=== PATIENT | male | born 1995 | race Caucasian/White ===

== ENCOUNTER 2018-07-30 09:02 | Inpatient (IN) | payer BC ==
[~2018-07-30] VITALS: Ht 188 cm; Wt 77.1 kg
--- NOTE | 2018-07-30 09:05 | NUR ---
PT AMBULATES TO BED 7
[2018-07-30 09:10] VITALS: BP 126/56
--- NOTE | 2018-07-30 09:18 | NUR ---
PT C/O NON RADIATING MID ABDOMINAL PAIN AND VOMITING SINCE LAST NIGHT. PER PT HE HAD BEEN DRINKING "HEAVILY" LAST NIGHT TIL MIDNIGHT. PT REPORTS SCHING, CRAMPING IN ABDOMEN. PAIN 12/20. VSS; PATIENT POSITIONED FOR COMFORT; HOB ELEVATED; BEDRAILS UP X1; BED DOWN. ER MD MADE AWARE OF PT STATUS.
--- NOTE | 2018-07-30 09:18 | NUR ---
Note kathe in EDM - 07/30/18 at 0918 by BRITTANY pt C/O NON RADIATING MID ABDOMINAL PAIN AND VOMITING SINCE LAST NIGHT. PER PT HE HAD BEEN DRINKING "HEAVILY" LAST NIGHT TIL MIDNIGHT.
--- NOTE | 2018-07-30 09:19 | NUR ---
Patient being evaluated by physician at bedside.
[2018-07-30] MEDS ORDERED: NACL 0.9% 1,000 ML IV ONE (09:23)
[2018-07-30] MEDS ORDERED: MORPHINE SULFATE 4 MG/ML SYR IVP ONE ×2 (09:25→10:25)
[2018-07-30] MEDS ORDERED: FAMOTIDINE 20 MG/2 ML VIAL IVP ONE (09:25)
[2018-07-30] MEDS ORDERED: ONDANSETRON 4 MG/2 ML VIAL IVP ONE (09:45)
[2018-07-30 09:48] LABS: APPEARANCE,URINE CLEAR (CLEAR); BILIRUBIN,URINE NEGATIVE (NEGATIVE); BLOOD, URINE NEGATIVE (NEGATIVE); COLOR,URINE YELLOW (YELLOW); LEUKOCYTE ESTERASE ,URINE NEGATIVE (NEGATIVE); NITRITE, URINE NEGATIVE (NEGATIVE); UGLUCOSE NEGATIVE (NEGATIVE)
[2018-07-30 09:55] LABS: BASOPHILS % (AUTO) 0.2 % (0.0-2.0); EOSINOPHILS % (AUTO) 0.2 % (0.0-4.0); HEMOGLOBIN 14.6 g/dL (12.0-18.0); LYMPHOCYTES # (AUTO) 1.2 K/uL (2.0-11.5); LYMPHOCYTES % (AUTO) 14.8 % (20.5-51.1); MEAN CORPUSCULAR HEMOGLOBIN 31 pg (27-31); MEAN CORPUSCULAR HGB CONC 34 g/dL (33-37); MEAN CORPUSCULAR VOLUME 90.4 fL (80-94); MONOCYTES # (AUTO) 0.5 K/uL (0.8-1.0); MONOCYTES % (AUTO) 5.8 % (1.7-9.3); NEUTROPHILS # (AUTO) 6.3 K/uL (1.8-7.7); PLATELET COUNT (AUTO) 205 K/uL (140-450); RED BLOOD CELL COUNT(AUTO) 4.76 MIL/uL (4.20-6.10); WHITE BLOOD COUNT (AUTO) 7.9 K/uL (4.8-10.8)
[2018-07-30 10:04] LABS: ALBUMIN 4.9 g/dL (3.4-5.0); ANION GAP 12.1 (8-16); CARBON DIOXIDE 26.5 mmol/L (21-32); CHOL/HDL RATIO 2.3 (1-4.5); CREATININE 0.9 mg/dL (0.7-1.3); POTASSIUM 4.6 mmol/L (3.5-5.1); TOTAL BILIRUBIN 1.1 mg/dL (0.0-1.0)
[2018-07-30] MEDS ORDERED: DEXT 5% /NACL 0.9% 1,000 ML IV SCH (10:39)
[2018-07-30] MEDS ORDERED: ACETAMINOPHEN 325 MG TAB PO PRN (10:40)
--- NOTE | 2018-07-30 11:00 | NUR ---
XRAY AT BEDSIDE
--- NOTE | 2018-07-30 11:15 | NUR ---
PT TAKEN TO TELE FLOOR BY POLO GOLDMAN AND EMT JOSHUA
[2018-07-30 11:20] VITALS: BP 128/66
--- NOTE | 2018-07-30 11:20 | NUR ---
PATIENT ARRIVED FROM ER VIA GURNEY. ABLE TO AMBULATE FROM ER BED TO [facility] BED WITH STABLE GAIT. NO DISTRESS NOTED. REPORTS VOMITING X 2 IN ER AND REPORT FEELING BETTER AFTER VOMITING. ZOFRAN AND MORPHINE ALREADY GIVEN AT ER. ABDOMEN SOFT, NON-DISTENDED. IV SITE INTACT, PATENT, WILL START IVF PER MD ORDERS. ORIENTED PATIENT TO ROOM AND CALL LIGHT. REVIEWED PLAN OF CARE WITH PATIENT. PATIENT VERBALIZED UNDERSTANDING. WILL CONTINUE TO MONITOR.
[2018-07-30 11:30] LABS: BARBITURATE, URINE NEG. ng/ml (NEG <=200); BENZODIAZEPINE, URINE NEG. ng/mL (NEG <=200); CANNABINOID, URINE POS. ng/mL (NEG <=50); COCAINE, URINE NEG. ng/mL (NEG <=300); OPIATE, URINE NEG. ng/mL (NEG <=2000); PHENCYCLIDINE SCREEN,URINE NEG. ng/mL (NEG <=25)
--- NOTE | 2018-07-30 11:30 | NUR ---
Patient will be admitted to care of DR. SHRESTHA. Admited to TELE. Will go to room 105B. Belongings list completed. Report to MARIELY CUELLAR.
[2018-07-30 11:46] LABS: PROTHROMBIN TIME 10.4 secs (10.8-13.4)
[2018-07-30 12:00] LABS: FREE T4 (FREE THYROXINE) 1.19 ng/dL (0.76-1.46); THYROID STIMULATING HORMONE 0.46 uIU/mL (0.34-3.74)
[2018-07-30] MEDS: NACL 0.9% 1,000 ML IV SCH ×2 (12:01→19:49)
--- NOTE | 2018-07-30 12:08 | NUR ---
ONLINE COMMUNICATIONS SPECIALIST AT BEDSIDE TO PERFORM US OF ABD. WILL CONTINUE TO MONITOR.
[2018-07-30] MEDS: MORPHINE SULFATE 4 MG/ML SYR IVP PRN ×3 (13:34→19:48)
--- NOTE | 2018-07-30 14:03 | NUR ---
PATIENT SITTING IN BED WITH COMPLAINTS OF ABD PAIN, MORPHINE GIVEN PER MD ORDERS. VOMIT X2 AROUNS 100 ML EACH, YELLOW IN COLOR. WILL CONTINUE TO MONITOR.
[2018-07-30] MEDS: ONDANSETRON 4 MG/2 ML VIAL IVP PRN ×2 (14:24→22:38)
[2018-07-30 16:00] VITALS: BP 145/87
--- NOTE | 2018-07-30 16:30 | NUR ---
PATIENT SITTING IN BED WATCHING TV. NO DISTRESS NOTED. CONDITION UNCHANGED. WILL CONTINUE TO MONITOR.
[2018-07-30] MEDS: DEXT 5% / NACL 0.9% 500 ML IV SCH ×2 (16:35→22:15)
[2018-07-30] MEDS: KETOROLAC 15 MG/ML VIAL IVP SCH (17:23)
--- NOTE | 2018-07-30 18:30 | NUR ---
PATIENT TALKING TO MOTHER AT BEDSIDE. NO DISTRESS NOTED. WILL CONTINUE TO MONITOR.
--- NOTE | 2018-07-30 19:30 | NUR ---
GAVE REPORT TO ELECTRICAL LOGGING ENGINEER NURSE FOR CONTINUITY OF CARE. PATIENT IN STABLE CONDITION.
--- NOTE | 2018-07-30 19:31 | NUR ---
PATIENT ARRIVED FROM AM SHIFT. A,O X 4 AMBULATORY. TELE PT. NO DISTRESS NOTED. R. IV SITE INTACT, PATENT, WITH IV ONGOING ON LEFT AC G 18 NS AT 120 AND LEFT FOREARM WITH D5 .9 NS AT 80 . PT PLACED IN LOWEST BED POSITION. CALL LIGHT WITHIN REACH. WILL CONTINUE TO MONITOR.
[2018-07-30 20:00] VITALS: BP 144/83
[2018-07-31] VITALS: BP 145/85
[2018-07-31] MEDS: KETOROLAC 15 MG/ML VIAL IVP SCH ×5 (00:43→23:42)
[2018-07-31 04:00] VITALS: BP 138/85
[2018-07-31] MEDS: NACL 0.9% 1,000 ML IV SCH (04:05)
[2018-07-31] MEDS: DEXT 5% / NACL 0.9% 500 ML IV SCH ×3 (04:30→18:11)
--- NOTE | 2018-07-31 04:30 | NUR ---
PT GIVEN MOPRHINE REQUESTED PAIN AT 01/20. WILL REASSESS.
[2018-07-31] MEDS: MORPHINE SULFATE 4 MG/ML SYR IVP PRN (04:34)
--- NOTE | 2018-07-31 05:00 | NUR ---
PT GIVEN MORPHINE HAD 8/10 PAIN RECENTLYTORADOL ROUTINE NON-ADMNISTERED DUE TO RELIEF OF PAIN, NO COMPLAINTS, NO SYMPTOMS OF PAIN
--- NOTE | 2018-07-31 06:00 | NUR ---
TORADOL NOT GIVEN LAST DOSE OF MORPHINE TOO CLOSE. DR. ROD.
[2018-07-31 06:24] LABS: BASOPHILS % (AUTO) 0.1 % (0.0-2.0); EOSINOPHILS % (AUTO) 0.1 % (0.0-4.0); HEMATOCRIT 39.3 % (36-52); HEMOGLOBIN 13.2 g/dL (12.0-18.0); LYMPHOCYTES # (AUTO) 0.9 K/uL (2.0-11.5); LYMPHOCYTES % (AUTO) 9.6 % (20.5-51.1); MEAN CORPUSCULAR HEMOGLOBIN 31 pg (27-31); MEAN CORPUSCULAR HGB CONC 34 g/dL (33-37); MEAN CORPUSCULAR VOLUME 91.9 fL (80-94); MONOCYTES # (AUTO) 0.9 K/uL (0.8-1.0); MONOCYTES % (AUTO) 9.2 % (1.7-9.3); NEUTROPHILS # (AUTO) 7.8 K/uL (1.8-7.7); PLATELET COUNT (AUTO) 169 K/uL (140-450); RED BLOOD CELL COUNT(AUTO) 4.28 MIL/uL (4.20-6.10); RED CELL DISTRIBUTION WIDTH 12.9 % (11.6-13.7); WHITE BLOOD COUNT (AUTO) 9.6 K/uL (4.8-10.8)
[2018-07-31 06:41] LABS: ANION GAP 9.6 (8-16); CARBON DIOXIDE 28.7 mmol/L (21-32); CREATININE 0.8 mg/dL (0.7-1.3); POTASSIUM 4.3 mmol/L (3.5-5.1)
[2018-07-31 06:48] LABS: MAGNESIUM 1.8 mg/dL (1.8-2.4); PHOSPHORUS 3.6 mg/dL (2.5-4.9)
[2018-07-31] MEDS ORDERED: MULTIVITAMIN-12 10 ML, THIAMINE 100 MG, FOLIC ACID 1 MG, MAGNESIUM SULFATE 50% 2,000 MG... IV ONE ×5 (07:10)
--- NOTE | 2018-07-31 07:16 | NUR ---
ENDORSED TO NEXT SHIFT IN STABLE VITALS AND CONDITION FOR CONTINUITY OF CARE.
--- NOTE | 2018-07-31 07:30 | NUR ---
RECEIVED PT IN BED, AWAKE, ALERT, ORIENTED X4. NO SOB NOTED, NO C/O PAIN AT THIS TIME. IV TO LAC AND LFA PATENT AND INTACT. CHEST, CLEAR. ABDOMEN SOFT, BOWEL SOUNDS PRESENT. NPO MAINTAINED. INSTRUCTED PT TO CALL FOR ASSISTANCE, CALL LIGHT WITHIN REACH, VERBALIZED UNDERSTANDING.
[2018-07-31 08:00] VITALS: BP 120/76
[2018-07-31] MEDS ORDERED: NACL 0.9% 1,000 ML IV SCH (08:25)
--- NOTE | 2018-07-31 08:25 | NUR ---
PATIENT HAS BEEN SCREENED AND CATEGORIZED MODERATE NUTRITION RISK. PATIENT WILL BE SEEN WITHIN 3-5 DAYS OF ADMISSION. 08/01/18RADHA [address]OLD [address]
[2018-07-31] MEDS ORDERED: oxyCODONE/APAP 5/325 MG 1 TAB TAB PO PRN (08:35)
[2018-07-31] MEDS ORDERED: MULTIVITAMIN-12 10 ML, THIAMINE 100 MG, MAGNESIUM SULFATE 50% 2,000 MG, FOLIC ACID 1 MG... IV ONE ×5 (08:40)
[2018-07-31] MEDS ORDERED: MULTIVITAMIN-12 10 ML, THIAMINE 100 MG, MAGNESIUM SULFATE 50% 2,000 MG, FOLIC ACID 1 MG... IV SCH ×5 (09:00)
[2018-07-31] MEDS: PANTOPRAZOLE 40 MG INJ VIAL IVP SCH (09:43)
--- NOTE | 2018-07-31 12:00 | NUR ---
PT TOLERATED CLEAR LIQUIDS FOR BREAKFAST AND LUNCH. NO N&V NOTED.
--- NOTE | 2018-07-31 15:45 | NUR ---
PT RESTING. NO SOB NOTED. NO COMPLAINTS MADE.
[2018-07-31 16:00] VITALS: BP 125/70
--- NOTE | 2018-07-31 19:00 | NUR ---
PT AWAKE, TALKING ON THE PHONE. NO COMPLAINTS MADE. WILL ENDORSE TO NEXT SHIFT NURSE.
--- NOTE | 2018-07-31 19:00 | NUR ---
PT TOLERATED FULL LIQUIDS. NO N&V NOTED.
--- NOTE | 2018-07-31 19:27 | NUR ---
RECEIVED FROM AM RN IN BED AWAKE AND ALERT. PT. A/O X 4. ROM X 4. CLEAR SPEECH. VERBALIZES NEEDS IN [place]. CARE PLANS FOR THE NIGHT DISCUSSED WITH HIM. CALL LIGHT WITH IN REACH. NO SOB. DENIES PAIN AT THIS TIME. PT. WATCHING SOMETHING IN HIS CELL PHONE. ENCOURAGED TO USE CALL LIGHT FOR ANY PAIN HE HAS OR IF H E NEEDS ANY HELP.
[2018-07-31 23:42] VITALS: BP 130/80
[2018-08-01] MEDS: DEXT 5% / NACL 0.9% 500 ML IV SCH ×2 (00:12→05:49)
--- NOTE | 2018-08-01 00:13 | NUR ---
TORADOL IVP SCHEDULED ADMINISTERED. NO COMPLAINTS DONE. WAKES UP EASILY WHEN CALLED BY NAME. NO SOB. IVF SITES INTACT AND NO INFILTRATION. CALL LIGHT WITH IN REACH.
[2018-08-01 05:49] VITALS: BP_SYST 117; BP_SYST 134; BP_DIAS 60; BP_DIAS 84
[2018-08-01] MEDS: KETOROLAC 15 MG/ML VIAL IVP SCH (05:49)
--- NOTE | 2018-08-01 07:20 | NUR ---
ENDORSED TO THE NEXT RN FOR CONTINUITY OF CARE. AWAKE AND ALERT. NO SOB. SLEPT WELL THIS SHIFT.
--- NOTE | 2018-08-01 07:25 | NUR ---
Received report from pm nurse Debbie. Pt resting in bed, awake, no signs of distress, FLACC 0. Call light within reach.
[2018-08-01 07:30] LABS: ANION GAP 11.6 (8-16); CREATININE 0.7 mg/dL (0.7-1.3); POTASSIUM 3.6 mmol/L (3.5-5.1)
[2018-08-01 07:34] LABS: MAGNESIUM 1.6 mg/dL (1.8-2.4); PHOSPHORUS 2.8 mg/dL (2.5-4.9)
[2018-08-01 08:00] VITALS: BP 116/62
[2018-08-01 08:55] LABS: BASOPHILS % (AUTO) 0.1 % (0.0-2.0); EOSINOPHILS # (AUTO) 0.1 K/uL (0-0.4); EOSINOPHILS % (AUTO) 0.6 % (0.0-4.0); HEMATOCRIT 34.5 % (36-52); HEMOGLOBIN 11.7 g/dL (12.0-18.0); LYMPHOCYTES # (AUTO) 1.4 K/uL (2.0-11.5); LYMPHOCYTES % (AUTO) 15.2 % (20.5-51.1); MEAN CORPUSCULAR HEMOGLOBIN 31 pg (27-31); MEAN CORPUSCULAR HGB CONC 34 g/dL (33-37); MEAN CORPUSCULAR VOLUME 91.9 fL (80-94); MONOCYTES # (AUTO) 0.9 K/uL (0.8-1.0); MONOCYTES % (AUTO) 10.2 % (1.7-9.3); NEUTROPHILS # (AUTO) 6.6 K/uL (1.8-7.7); NEUTROPHILS % (AUTO) 73.9 % (42.2-75.2); PLATELET COUNT (AUTO) 139 K/uL (140-450); RED BLOOD CELL COUNT(AUTO) 3.75 MIL/uL (4.20-6.10); RED CELL DISTRIBUTION WIDTH 12.7 % (11.6-13.7)
[2018-08-01] MEDS: PANTOPRAZOLE 40 MG INJ VIAL IVP SCH (09:45)
--- NOTE | 2018-08-01 10:00 | NUR ---
Written & verbal discharge instructions provided to pt. Pt verbalized understanding & agree with discharge plans. Left forearm & left ac IV discontinued.
--- NOTE | 2018-08-01 10:50 | NUR ---
Pt discharged to home at this time. Name band removed. Amb off unit with steady gait, transport via private car by family. All belongings with pt upon departure.
== END 2018-08-01 10:50 | disposition home or self-care (01) | DRG 440 ==
LOC: MED 09:02 → MTU 10:39
PROVIDERS: ADMIT General Practice; ATTEND General Practice
DX: K85.20 Alcohol induced acute pancreatitis without necrosis or infection (principal); F10.10 Alcohol abuse, uncomplicated; Y90.9 Presence of alcohol in blood, level not specified; E83.51 Hypocalcemia
CPT/HCPCS: 36415; 36600; 71045; 76700; 80048; 80053; 80305; 81003; 82150; 82803; 83036; 83605; 83615; 83690; 83735; 83880; 84100; 84439; 84443; 84484; 85025; 85610; 85730; 87081; 93005; 96361; 96374; 96375; 96376; 99291; A9153; C9113; J1644; J1885; J2270; J2405; J3411; J3475; J3490; J7030; J7042; Q0092